=== PATIENT | female | born 2000 | race Two or more races ===

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

== ENCOUNTER 2020-04-23 10:34 | Emergency (ER) | payer MEDICAID ==
[~2020-04-23] VITALS: Ht 162.6 cm; Wt 86.2 kg
[2020-04-23 10:45] VITALS: BP 119/75
[2020-04-23] MEDS ORDERED: cefTRIAXone SOD 1,000 MG VL IM ONE (11:15)
[2020-04-23] MEDS ORDERED: LIDOCAINE 1% HCL (LOCAL ANESTH.) INJ 20ML MDV IJ ONE (11:15)
== END 2020-04-23 11:33 | disposition home or self-care (01) ==
LOC: ER 10:34
DX: J03.90 Acute tonsillitis, unspecified (principal)
CPT/HCPCS: 96372; 99283; J0696; J2001